=== PATIENT | female | born 1990 | race Two or more races ===

== ENCOUNTER 2025-04-13 19:53 | Emergency (ER) | payer BC, SELFPAY ==
[2025-04-13 19:55] VITALS: BMI 38.3
[2025-04-13 20:18] VITALS: BP 165/100; PULSE 84; RESP 18; TEMP 37.1; O2SAT 98
--- NOTE | 2025-04-13 20:34 | XR_ITS ---
Examination: CT brain head without contrast. 2-D sagittal coronal reconstructions Date and time of exam: April 13, 2025, 2044 hours INDICATIONS: Headache dizziness beginning 2 weeks ago CTDI: vol (mGy): 49.3 DLP: (mGycm): 946 Technique: Multiple CT axial sections of the brain have been obtained, 5 mm slice thickness. Contrast has not been administered. 2-D sagittal, coronal reconstructions have been obtained Low dose protocols were performed. One or more of the following dose reduction techniques were used; automated exposure control, adjustment of the mA and/or KV according to patient size, use of iterative reconstruction technique. Findings: No significant ventricular enlargement. Intra-axial or extra-axial hemorrhage density is not seen. No mass effect or midline shift Basal cisterns are not remarkable. Fourth ventricle is midline. Cranial vault intact. Impression: Negative for acute hemorrhage, mass effect or midline shift Advise clinical correlation and follow-up accordingly
--- NOTE | 2025-04-13 20:35 | EKG_ITS ---
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
[2025-04-13 21:05] LABS: Basophils # (Auto) 0.0 Thou/mm3 (0.0-0.2); Basophils % (Auto) 0 % (0-2.5); Eosinophils # (Auto) 0.1 Thou/mm3 (0.0-0.5); Eosinophils % (Auto) 1 % (0-10); Hematocrit 40.2 % (36.0-46.0); Hemoglobin 13.1 g/dL (12.0-16.0); Immature Granulocytes Auto 0.05 Thou/mm3 (0.00-0.00); Lymphocytes # (Auto) 3.1 Thou/mm3 (1.0-4.8); Lymphocytes % (Auto) 25 % (10-50); Mean Corpuscular HGB Conc 32.6 g/dl (31.0-37.0); Mean Corpuscular Hemoglobin 26.3 pg (25.0-35.0); Mean Corpuscular Volume 81 fL (80-100); Monocytes # (Auto) 0.9 Thou/mm3 (0.0-0.8); Monocytes % (Auto) 7 % (0-12); Neutrophils # (Auto) 8.0 Thou/mm3 (1.8-7.7); Neutrophils % (Auto) 66 % (37-80); Nucleated Red Blood Cell # 0.00 Thou/mm3 (0.00-0.00); Nucleated Red Blood Cell % 0 /100 WBC (0); Platelet Count 329 Thou/mm3 (140-440); RDW Standard Deviation 40.6 fL (36.4-46.3); Red Blood Count 4.99 Miln/mm3 (4.00-5.20); White Blood Count 12.2 Thou/mm3 (3.6-11.0)
[2025-04-13 21:23] LABS: Alanine Aminotransferase 22 U/L (10-49); Albumin, Serum 4.8 gm/dL (3.5-5.0); Albumin/Globulin Ratio 1.5 (1.2-2.2); Alkaline Phosphatase 80 U/L (46-116); Anion Gap 10 (7-16); Aspartate Amino Transferase 18 U/L (0-34); BUN/Creatinine Ratio 14 Ratio (12-20); Bilirubin,Total 0.4 mg/dL (0.3-1.2); Blood Urea Nitrogen 13 mg/dL (9-23); Calcium 9.2 mg/dL (8.3-10.6); Calcium (Corrected) 9.2 mg/dL (8.5-10.1); Carbon Dioxide 25.6 mMol/L (20.0-31.0); Chloride 106 mMol/L (98-107); Creatinine (Component) 0.9 mg/dL (0.6-1.3); Estimated Creatinine Clearance 76.1 mL/min (>60); Globulin 3.3 gm/dL (2.3-3.5); Glucose 102 mg/dL (74-106); Osmolality,Calculated 283 (275-295); Potassium 3.8 mMol/L (3.4-5.1); Sodium 142 mMol/L (136-145); Total Protein 8.1 gm/dL (5.7-8.2); Troponin I < 0.020 ng/mL (0.0-0.045); eGFR > 60 See Note
[2025-04-13 21:27] LABS: HCG,Qualitative Serum Negative
[2025-04-13 22:27] VITALS: BP 149/87; PULSE 72
[2025-04-13] MEDS: HYDROcodone/APAP 5/325 TABLET 1 TAB PO (22:30)
[2025-04-13] MEDS: ONDANSETRON ODT 4 MG TABRAP PO (22:31)
--- NOTE | 2025-04-13 23:00 | EDNOTE_ITS ---
ED Headache RME/HPI General Chief Complaint: Headache Stated Complaint: HEADACHE,HIGH BP Time Seen by Provider: 04/13/25 20:29 Arrival date/time: 04/13/25 19:53 This is a case of 35-year-old female with history of hypertension on losartan came in in the emergency room due to on and off headache mostly on the frontal area patient went to his primary care physician and was sent here due to headache and high blood pressure noted 165/100 patient denies any blurring of vision denies any dizziness nausea vomiting denies any numbness weakness tingling or persistence of the symptoms this patient decided to sought consult here in the emergency room Limitations: no limitations Related Data Previous Rx's ?Medication ?Instructions ?Recorded sillezgmhj-jlehgsy-hmhdeiui 50 1 cap PO Q6H PRN pain # 14 caps 04/13/25 mg-325 mg-40 mg capsule ondansetron 4 mg disintegrating 4 mg PO Q8H #20 tabs 1 06/14/24 tablet Allergies Allergy/AdvReac Type Severity Reaction Status Date / Time No Known Allergies Allergy Verified 04/13/25 19:54 Review of Systems Review of Systems Systems Reviewed: All systems reviewed, normal except as documented Past Medical History Social History SMOKING STATUS: Never smoker ED Exam General Limitations: Present no limitations General appearance: Present alert, in no apparent distress and other (Patient is awake alert oriented not in distress nontoxic looking well-hydrated well nourished) Head Head exam: Present atraumatic, normocephalic and normal inspection Eye Eye exam: Present normal appearance, PERRL, EOMI and other (PERRL EOM intact normal conjunctiva no papilledema) ENT ENT exam: Present normal exam, normal oropharynx, mucous membranes moist and other (heent exam normal) Neck Neck exam: Present normal inspection, full ROM and trachea midline; Absent tenderness, meningismus, lymphadenopathy, thyromegaly or other (negative for menigeal sign) Chest Chest inspection: Present normal inspection and symmetric chest wall rise; Absent tenderness Respiratory Respiratory exam: Present normal lung sounds bilaterally; Absent respiratory distress, wheezes, stridor, accessory muscle use or prolonged expiratory phase Cardiovascular Cardiovascular exam: Present regular rate, normal rhythm, normal heart sounds and other (No pitting edema); Absent bradycardia, tachycardia, irregular rhythm, systolic murmur or diastolic murmur Abdominal Exam Abdominal exam: Present soft and normal bowel sounds; Absent distention, tenderness, guarding, rebound, rigidity, diminished bowel sounds, hyperactive bowel sounds, hypoactive bowel sounds or organomegaly Extremities Exam Extremities exam: Present normal inspection and full ROM Back Exam Back exam: Present normal inspection and full ROM Neurological Exam Neurological exam: Present alert, oriented X3, CN II-XII intact, normal gait, re flexes normal and other (Awake alert oriented x 4 no focal deficit GCS 15/15 steady gait memory intact no slurring of speech no facial droop CN II to XII is normal motor or sensory reflex were all normal in all extremities negative Babinski); Absent motor sensory deficit Psychiatric Psychiatric exam: Present normal affect and normal mood Skin Skin exam: Present warm, dry, intact, normal color and other (Excellent skin turgor) Course Quality Measures none Orders Category Date Time Status EKG (ED ONLY) *Do not use* NOW Care 04/13/25 20:[address] head/brain wo con Stat Exams 04/13/25 20:34 Completed EKG (ED Only) Stat Exams 04/13/25 20:35 Draft CBC Stat Lab 04/13/25 20:45 Completed CMP [Comprehensive Metabolic Panel] Stat Lab 04/13/25 20:45 Completed HCG,Qualitative Serum Stat Lab 04/13/25 20:45 Completed Troponin I Stat Lab 04/13/25 20:45 Completed HYDROcodone*/APAP 5/325 [[place] 5/325] Med 04/13/25 20:35 Discontinued 1 tab PO X1 ONE Ketorolac Inj [Toradol Inj] Med 04/13/25 22:59 Discontinued 60 mg IM X1 ONE Ondansetron Odt [Zofran Odt] Med 04/13/25 20:35 Discontinued 4 mg PO X1 ONE cloNIDine HCL [Catapres] Med 04/13/25 20:35 Discontinued 0.1 mg PO X1 ONE Vital Signs Vital signs: Vital Signs Temperature 98.8 F 04/13/25 20:18 Pulse Rate 84 04/13/25 20:18 Respiratory Rate 18 04/13/25 20:18 Blood Pressure 165/100 H 04/13/25 20:18 Pulse Oximetry (%) 98 04/13/25 20:18 Oxygen Delivery Method Room Air 04/13/25 20:18 Oxygen saturation 98% on room air normal Headache MDM Narrative MDM Narrative:: This is a case of 35-year-old female with history of hypertension on losartan came in in the emergency room due to on and off headache mostly on the frontal area patient went to his primary care physician and was sent here due to headache and high blood pressure noted 165/100 patient denies any blurring of vision denies any dizziness nausea vomiting denies any numbness weakness tingling or persistence of the symptoms this patient decided to sought consult here in the emergency room physical examination patient is awake alert oriented not in distress nontoxic looking well-hydrated well-nourished vital signs noted BP 165/100 not tachycardic not tachypneic patient is afebrile and nonhypoxic oxygen saturation is 98% in room patient eye exam PERRL EOM intact normal conjun ctiva no papilledema no hyphema HEENT exam is normal and unremarkable negative for meningeal sign excellent skin turgor heart normal rate regular rhythm no murmur clear breath sounds equal no wheezing no crackles no rales no retraction no stridor neurological exam is normal awake alert oriented x 4 no focal deficit GCS 15/15 steady gait memory intact no slurring of speech no facial droop CN II to XII is normal motor or sensory reflex were all normal in all extremities negative Babinski based on my physical examination impression is migraine headache tension headache hypertension headache and sinus headache I do not think patient is having brain mass CVA TIA patient was given Toradol and [place] and Zofran for headache after 1 hour patient condition markedly improved headache improved patient blood pressure is also improved to 149/87 without BP medication at this point patient will be discharged home with stable condition patient was advised to follow-up with PCP to be referred to neurologist for headache and continue to monitor the blood pressure and review medication for hypertension patient will continue to monitor his blood pressure at home and with blood pressure greater than 160/100 or become symptomatic thus decided to sought consult here in the emergency room for any recurrence persistent worsening symptoms or any emergent concern return precaution in the ER is advsied Patient data External records reviewed:: [facility] previous records Clinical information provided by:: patient Social determinants that could affect healthcare access:: none Patient has the following chronic illnesses:: none How is presenting disease/condition affected by chronic disease/condition?: no chronic disease Evaluation data The following diagnostics were reviewed and interpreted by me:: lab results, radiology exam(s) and EKG tracing(s) Lab and/or radiology exams considered but not ordered:: reviewed Interpretation Summary: reveiwed Medications / Prescriptions Medications or Prescriptions considered but not ordered:: given Medication administrations:: Medication Administration History Discontinued Medications Hydrocodone Bitart/Acetaminophen (Hydrocodone/Apap 5/325 Tablet) 1 tab PO X1 ONE Stop: 04/13/25 20:36 Last Admin: 04/13/25 22:30 Dose: 1 tab Documented By: EUSEBIO Clonidine (Clonidine Hcl 0.1 Mg Tablet) 0.1 mg PO X1 ONE Stop: 04/13/25 20:36 Last Admin: 04/13/25 22:27 Dose: Not Given Documented By: EUSEBIO Non-Admin Reason: Cancelled by Provider Ketorolac Tromethamine (Ketorolac Inj 60 Mg/2 Ml Vial) 60 mg IM X1 ONE Stop: 04/13/25 23:00 Last Admin: 04/13/25 23:07 Dose: 60 mg Documented By: SHYLA Ondansetron HCl (Ondansetron Odt 4 Mg Tabrap) 4 mg PO X1 ONE; Protocol Stop: 04/13/25 20:36 Last Admin: 04/13/25 22:31 Dose: 4 mg Documented By: EUSEBIO given Consultations Consultation(s) initiated? (list below): No Diagnosis Differential diagnosis headache: migraine, tension headache, headache and sinusitis Most likely diagnosis given after review of the tests above:: Hypertension headache Admission Indicated Admission indicated?: not indicated Explain why admission is indicated or not indicated:: not indiacted Admission Request Was there a request for admission?: No Disposition Plan Disposition Plan: Discharge Discharge Attestation Discharge Attestation: The patient and all family members were given an opportunity to ask questions and understood the discharge instructions. Discharge instructions specifically effects, indications for sooner follow up or return to the emergency department, and the expected course of current diagnosis. Patient condition: Stable Discharge Plan Plan Patient Disposition: HOME (Self Care) Patient condition on transfer: Stable Prescriptions/Referrals Prescriptions/Med Rec: New utzoqfwolx-eesyzae-xnpdbolq 50-325-40 mg capsule 1 cap PO Q6H PRN (Reason: pain) Qty: 14 0RF ondansetron 4 mg tablet,disintegrating 4 mg PO Q8H Qty: 20 0RF Referrals: Pascual Pearson PA-C [Primary Care Provider] - In 1 week Problem List Clinical Impression: Headache, Uncontrolled hypertension Patient/Caregiver Discharge Instructions Education Materials: Self-Care for Headaches, ED High Blood Pressure ... Additional Instructions: Follow-up with your primary care physician in 2 days for reevaluation and to be referred to a neurologist for further evaluation and treatment of your headache recurrence persistent worsening symptoms or any emergent concern call 911 or go to the nearest emergency room take your medication as directed increase water intake keep hydrated Pedialyte Gatorade for hydration is advised for follow-up with your primary care physician to monitor your blood pressure and review your medication for hypertesion and continue to take your losartan monitor your blood pressure twice a day and if your blood pressure greater than 160/100 or become symptomatic return to the emergency room immediately or call 911 low-fat low- salt low-cholesterol diet and regular exercises adsvied Print Language: Luxembour[place] Stand Alone Forms: Christelle Award Info., Patient Portal Info Letter PA/BLEACH R[employer] OPERATOR Supervising Physician JAQUAN/CARMINE Supervising Physician: Dr rojas
[2025-04-13] MEDS: KETOROLAC INJ 60 MG/2 ML VIAL IM (23:07)
== END 2025-04-13 23:20 | disposition home or self-care (01) ==
PROVIDERS: Nurse Practitioner Family; Emergency Provider Emergency Medicine; PCP Family Medicine
DX: R51.9 Headache, unspecified (principal); I10 Essential (primary) hypertension
CPT/HCPCS: 36415; 70450; 80053; 84484; 84703; 85025; 93005; 96372; 99283; J1885; Q0162; A9270